=== PATIENT | female | born 1995 | race Caucasian/White ===

== ENCOUNTER 2016-09-05 15:05 | Emergency (ER) | payer MEDICAID, OTHER ==
[~2016-09-05] VITALS: Ht 165.1 cm; Wt 59.0 kg
--- NOTE | 2016-09-05 15:38 | NUR ---
Yoselin neil in [facility] - 09/05/16 at 1539 by [facility] Patient being evaluated by physician in triage.
[2016-09-05 15:40] VITALS: BP 112/72
--- NOTE | 2016-09-05 17:44 | NUR ---
PT TAKEN TO BED 5.
--- NOTE | 2016-09-05 17:49 | NUR ---
21F BIB FAMILY C/O THROAT PAIN, ACHING, NON-RADIATING, 9/10 X 3 DAYS; PT DENIES COUGH AT THIS TIME; BL LUNG SOUNDS CLEAR, RR EVEN/UNLABORED; PT STATES HAD 2 EPISODES OF VOMITING TODAY, BUT DENIES DIARRHEA AT THIS TIME; ABDOMEN SOFT, NON-TENDER, ACTIVE BOWEL SOUNDS X 4 QUADRANTS; PT A&OX4, PERRLA, SKIN IS WARM/DRY/INTACT AT THIS TIME; STEADY GAIT; PT RESTING IN BED W/ HOB ELEVATED AND IN LOWEST POSITION; POSITIONED FOR COMFORT; ER MD MADE AWARE OF STATUS. WILL CONTINUE TO MONITOR.
--- NOTE | 2016-09-05 17:58 | NUR ---
Patient being evaluated by physician at bedside.
[2016-09-05] MEDS ORDERED: PENICILLIN G BENZATHINE C-R 1.2 MU/2 ML SYR IM ONE (18:15)
[2016-09-05 18:41] VITALS: BP 105/65
--- NOTE | 2016-09-05 18:41 | NUR ---
Patient discharged with v/s stable. Written and verbal after care instructions given and explained. Patient alert, oriented and verbalized understanding of instructions. Ambulatory with steady gait. All questions addressed prior to discharge. ID band removed. Patient advised to follow up with PMD. Rx of LIDOCAINE HYDROCHLORIDE 2 % VISCOUS SOLUTION & TYLENOL W/ CODEINE 120MG-12MG/5ML ELIXIR given. Patient educated on indication of medication including possible reaction and side effects. Opportunity to ask questions provided and answered.
== END 2016-09-05 18:41 | disposition home or self-care (01) ==
LOC: MED 15:05
DX: J03.80 Acute tonsillitis due to other specified organisms (principal); E78.00 Pure hypercholesterolemia, unspecified
CPT/HCPCS: 96372; 99283; J0558